=== PATIENT | female | born 1980 | race Caucasian/White ===

== ENCOUNTER 2023-10-08 15:44 | Outpatient (CLI) | payer BC, SELFPAY | END 2023-10-08 15:45 | disposition home or self-care (01) | LOC: NFLDREF 10-12 06:16 | PROVIDERS: PCP Family Medicine; Referring Provider Family Medicine; Visit Provider Family Medicine | DX: I10 Essential (primary) hypertension (principal); E11.9 Type 2 diabetes mellitus without complications; R82.90 Unspecified abnormal findings in urine | CPT/HCPCS: 82043; 82570; 87086 ==